=== PATIENT | male | born 1995 ===

== ENCOUNTER 2025-01-05 14:28 | Outpatient (REF) | payer MEDICAID, SELFPAY ==
--- NOTE | ~2025-01-05 | XR_ITS ---
EXAMINATION: XR RIBS, BILATERAL CLINICAL INFORMATION: mid/L sided CP radiating to L shoulder COMPARISON: None available. TECHNIQUE: PA chest, and 4 views of the bilateral ribs were obtained. FINDINGS: Lungs are clear. No consolidation, pneumothorax, or pleural effusion. The cardiomediastinal silhouette and pulmonary vasculature are normal. Osseous structures are unremarkable. Ribs are intact. No fractures are identified. XR/XR ribs BI min 4V w [id number] IMPRESSION: No acute findings of the thorax. Electronically signed by: Ollie Carlton MD 01/05/2025 03:29 PM EDT
--- OUTSIDE RECORDS SUMMARY | 2025-01-05 14:39 | XMS_ITS | Clinical Summary ---
Author Organization [facility] ity Address [address] [place] [address] Care Team Providers Care Beauty Culturist Apprentice Name Role Phone Vidhya Dudley MD Primary Care Provider [phone] Social History Tobacco Use Types Packs/Day Years Used Date Smoking Tobacco: Never Smokeless Tobacco: Never Alcohol Use Standard Drinks/Week Comments Yes 1 (1 standard drink = 0.6 oz pur e alcohol) Sex and Gender Information Value Date Recorded Sex Assigned at Not on file Legal Sex Male 5:43 PM EST Gender Identity Not on file Sexual Orientation Not on file Obstetrics History Plan of Treatment Health Maintenance Due Date Last Done Comments DTaP,Tdap,and Td Vaccines (1 - Tdap) 2012 Hepatitis B Vaccines (1 of 3 - 19+ 3-dose series) 2012 COVID-19 Vaccine ( - 2023-2 5 season) 2024 Depression Screening 06/08/2024 Influenza Vaccine (#1) 2025 HIB Vaccines Aged Out No longer eligi ble based on patient's age to complete this topic HPV Vaccines Aged Out No longer eligi ble based on patient's age to complete this topic Hepatitis A Vaccines Aged Out No long er eligible based on patient's age to complete this topic IPV Vaccines Aged Out No longer eligi ble based on patient's age to complete this topic MMR Vaccines Aged Out No longer eligi ble based on patient's age to complete this topic Meningococcal ACWY Vaccine Aged Out N o longer eligible based on patient's age to complete this topic Meningococcal B Vaccine Aged Out No l onger eligible based on patient's age to complete this topic Pneumococcal Vaccine: Pediat rics (0 to 5 Years) and At-Risk Patients (6 to 49 Years) Aged Out No longer eligible b ased on patient's age to complete this topic RSV Immunization Patients Un lida 20 months Aged Out No longer eligible b ased on patient's age to complete this topic Varicella Vaccines Aged Out No longer eligible based on patient's age to complete this topic Care Teams Beauty Culturist Apprentice Relationship Specialty Start Date End Date Vidhya Dudley MD PCP - General Internal Medicine 08/06/20
--- OUTSIDE RECORDS SUMMARY | 2025-01-05 14:39 | XMS_ITS | Encounter Summary ---
Author Organization [employer] Address [address] [facility] [place] [address] Care Team Providers Care [employer] Principal Name Role Phone Name, Pk GALLO Primary Care Provider [phone] Reason for Visit * Reason Onset Date Comments appt 09/29/2023 Encounter Details Date Type Department Care Team ([facility] st Contact Info) Description 09/29/2023 Telephone [facility] [address], [place] [phone] Karri Byers DDS [address], [place] [phone] appt Social History Tobacco Use Types Packs/Day Years Used Date Smoking Tobacco: Never Passive Smoke Exposure: Never Smokeless Tobacco: Never Alcohol Use Standard Drinks/Week Comments Never 0 (1 standard drink = 0.6 oz pur e alcohol) Housing Stability Answer Date Recorded What is your housing situation today? I have [facility] 03/30/[address] you li ve. Do you have problems with any of the following? None of the above 03/30/2023 Food Insecurity Answer Date Recorded Within the past 12 months, y ou worried that your food would run out before you got money to buy more: Never True 03/30/2023 Within the past 12 months,th e food you bought just didn't last and you didn't have enough money to get more: Never True Transportation Answer Date Recorded In the past 12 months, has l ack of transportation kept you from medical appts, meetings, work or from getting things needed for daily living? No 03/30/2023 Utilities Answer Date Recorded In the past 12 months, has t he electric, gas, oil or water company threatened to shut off services in your home? No 03/30/2023 Depression Answer Date Recorded Patient Health Questionnaire-2 Score 0 07/02/2022 Sex and Gender Information Value Date Recorded Sex Assigned at Male 06/12/2022 3:45 PM EST Legal Sex Male 3:44 PM EST Gender Identity Male 06/12/2022 3:45 PM EST Sexual Orientation Straight 06/12/2022 3: 49 PM EST documented as of this encounter Miscellaneous Notes * Telephone Encounter - Toshia Anastacio - 09/29/2023 9:39 AM EDT Patient came in for appt in 06/2023 and active requested for ext and silvia. He had to come in 09/2023 due to pain and states it is because he has waited to get an appt. He would like to be scheduled DR documented in this encounter Plan of Treatment Upcoming Encounters Date Type Department Care Team (Late st Contact Info) Description 02/15/2025 8:00 AM EDT Office Visit [facility] [address] [place] [address] Zonia Han documented as of this encounter Visit Diagnoses Not on filedocumented in this encounter Care Teams [employer] Principal Relationship Specialty Start Date End Date Name, MD [address] [place] [address] PCP - General Internal Medicine 06/12/22 documented as of this encounter
== END 2025-01-05 14:29 | disposition home or self-care (01) ==
LOC: HO.HHCX 14:28
PROVIDERS: Visit Provider Family Medicine
DX: M94.0 Chondrocostal junction syndrome [Tietze] (principal)
CPT/HCPCS: 71111